=== PATIENT | male | born 1950 ===

== ENCOUNTER → 2016-06-21 | Outpatient (CLI) | payer MEDICARE, BC ==
--- NOTE | 2016-06-21 15:55 | RAD ---
Bilateral lower extremity arterial duplex examination Clinical indications: Peripheral arterial disease. Comparison: None available. Findings: Duplex sonography of the peripheral arterial system of both lower extremities including garcia scale and color flow and spectral waveform analysis was performed.Triphasic and biphasic waveforms are seen. No occlusive disease is seen. No significant plaque formation or stenosis is identified. Peak systolic flow velocities are as follows: Right leg: common femoral artery- 92 cm/sec, profunda femoral artery -67 cm/sec, proximal superficial femoral artery -84cm/sec, mid superficial femoral artery -73 cm/sec, distal superficial femoral artery- 64 cm/sec, popliteal artery -58 cm/sec, distal posterior tibial artery- 58 cm/sec, anterior tibial artery- 89 cm/sec, dorsalis pedis artery -55 cm/sec. Left leg: common femoral artery- 109 cm/sec, profunda femoral artery -73 cm/sec, proximal superficial femoral artery- 89cm/sec, mid superficial femoral artery- 73 cm/sec, distal superficial femoral artery- 76 cm/sec, popliteal artery -54 cm/sec, distal posterior tibial artery- 60 cm/sec, anterior tibial artery -43 cm/sec, dorsalis pedis artery- 63 cm/sec. Impression: No significant peripheral arterial vascular disease is seen by duplex sonographic evaluation.
== END | disposition home or self-care (01) ==
LOC: US 11:47
PROVIDERS: ATTEND Internal Medicine
DX: I73.9 Peripheral vascular disease, unspecified (principal); I10 Essential (primary) hypertension; I83.11 Varicose veins of right lower extremity with inflammation; D3A.8 Other benign neuroendocrine tumors; E29.1 Testicular hypofunction
CPT/HCPCS: 93925